=== PATIENT | female | born 1995 | race Hispanic/Latino ===

== ENCOUNTER 2025-04-23 03:34 | Emergency (ER) | payer MEDICAID, MEDICARE ==
[~2025-04-23] VITALS: Ht 157.5 cm; Wt 99.8 kg
--- NOTE | 2025-04-23 03:52 | ERN ---
ED Note History of Present Illness Stated Complaint: ALLERGIC REACTION Chief Complaint: Allergic Reaction Time Seen by MD: 03:44 Dictation: This is a 29-year-old female who presented to the emergency room with complaints of extensive hives and urticaria across her torso chest back and also face. She had similar rash off and on in the past. Never reached her face or neck. No trigger has been found so far. She stated that she also started to feel shortness of breath and a sensation of throat tightening up. She was afraid of tongue and lip swelling and hence called the EMS. She received IM AP 0.5 and Benadryl prior to ER arrival in the rash had significantly improved. She denied any insect bites Did not my evaluation she denied any shortness of breath, tongue swelling or lip swelling. Temperature 97.8 pulse 88 respirations 20 blood pressure 112/73 pulse oximetry of 99% and a BMI of 40 Allergies: Coded Allergies: No Known Drug Allergies (Unverified Allergy, Unknown, 04/23/25) Home Meds Active Scripts Diphenhydramine HCl (Benadryl) 50 Mg Cap, 50 MG PO Q6HPRN for itching rash, #30 CAP 0 Refills Prov:SANTO NUÑEZ MD 04/23/25 Prednisone (Prednisone) 20 Mg Tablet, 1 TAB PO AD for 6 Days, #14 TAB 0 Refills TAKE 1 TAB BY MOUTH THREE TIMES PER DAY X3 DAYS, THEN TAKE 1 TAB BY MOUTH TWICE A DAY X2 DAYS, THEN TAKE 1 TAB BY MOUTH ONCE A DAY X1 DAY. Prov:SANTO NUÑEZ MD 04/23/25 Past Medical History Past Medical History: No Pertinent History Surgical History: Cholecystectomy Family History: Negative Social History: Smokers, Drugs (THC), Negative RN Note Reviewed/Agreed w/PFSH: Yes Review of System Dictation Constitutional: Negative for fever,chills, and weight loss Eyes: Negative for injury, pain,redness, and discharge ENT: Negative for injury,pain or swelling Cardiovascular: Negative for chest pain, palpitations, and edema Respiratory: Positive for shortness of breath, sensation of throat closing up Abdomen/GI: Negative for abdominal pain, nausea, vomiting, diarrhea, and constipation Back: Negative for injury and pain : Negative for injury, bleeding and discharge MS/Extremity: Negative for injury and deformity Skin: Positive for rash, diffuse urticaria all over the body Neuro: Negative for headache, weakness, numbness, tingling, and seizure Psych: Negative for suicide ideation, homicidal ideation, and hallucinations Initial Vital Sign VS Vital Signs Date Time Temp Pulse Resp B/P (MAP) Pulse Ox O2 Delivery O2 Flow Rate FiO2 04/23/25 03:35 97.9 88 20 112/73 99 Room Air 0 04/23/25 03:47 21 Physical Exam Dictation General: awake, alert, NAD morbidly obese lady Head/Face: Normocephalic, atraumatic Eyes: PERRL, EOMI, vision at baseline ENT: oral cavity clear, TMs clear, no signs of infection no stridor Neck: Trachea midline, supple, no nuchal rigidity Cardiovascular: RRR, normal S1/S2, No MRGs, no JVD Respiratory: CTAB, no respiratory distress, No rales or wheezes Abdomen: Soft, non-tender, non-distended, normal bowel sounds, no guarding or rebound. Skin: Warm, dry, normal turgor, no rash MS/Extremity: Pulses equal, no cyanosis, neurovascular intact, FROM Neuro: COAx4, GCS 15, strength 5/5, CN 2-12 intact, normal cerebellar exam, normal gait, Psych: Normal behavior, mood, and affect normal Extremities-trace edema without any palpable cords, Homans sign is negative ED Course ED Course Orders Procedure Category Date Status Time Methylprednisolone PHA 04/23/25 Complete Succ 125mg (Solu-Medr 04:00 Current Medications Medications (Trade) Dose Ordered Sig/Nick Route PRN Reason Start Time Stop Time Status Last Admin Dose Admin Methylprednisolone Sodium Succinate (Solu-medROL 125MG) 60 mg ONCE ONCE IM 04/23/25 04:00 04/23/25 04:16 DC 04/23/25 04:20 Vital Signs Date Time Temp Pulse Resp B/P (MAP) Pulse Ox O2 Delivery O2 Flow Rate FiO2 04/23/25 05:17 97.9 78 18 122/78 99 Room Air* 0 21 04/23/25 03:47 97.9 81 18 129/82 98 Room Air* 0 21 04/23/25 03:35 97.9 88 20 112/73 99 Room Air 0 Medical Decision Making MDM Differential diagnosis: Urticaria, angioedema, impending anaphylaxis, impetigo, contact dermatitis This is a 29-year-old female who presented to the emergency room with complaints of extensive hives and urticaria across her torso chest back and also face. She had similar rash off and on in the past. Never reached her face or neck. No trigger has been found so far. She stated that she also started to feel shor tness of breath and a sensation of throat tightening up. She was afraid of tongue and lip swelling and hence called the EMS. She received IM AP 0.5 and Benadryl prior to ER arrival in the rash had significantly improved. She denied insect bite Did not my evaluation she denied any shortness of breath, tongue swelling or lip swelling. Temperature 97.8 pulse 88 respirations 20 blood pressure 112/73 pulse oximetry of 99% and a BMI of 40 Dose of steroid and monitor her closely for any delayed reactivity. On re-evaluation patient was alert awake ambulating with no problems on room air. I educated her to see her primary care physician and perhaps get an evaluation for food allergies, environmental allergies Previous outside records reviewed: Old ER visits. Risk of complication and/or morbidity or mortality of patient management: None Medications-Per medication reconciliation Need for hospitalization: Patient does not meet criteria for hospitalization. Need for emergency major/minor surgery: No There are no social concerns with this patient. Prescription drug management Prescriptions will include symptomatic care Patient's prior external medical records from other ER visits were reviewed by me as indicated. Prior testing and results from previous visits were reviewed. Prior tests were taken into account with medical decision making and resource utilization, independent historian/historians were used to obtain complete medical history. I independently interpreted the test that were performed, results were reviewed by me and considered findings on radiology if ordered. Medical management and examination interpretation discussions were had by me with other qualified healthcare professionals as indicated for the patient's care. Problem List Problem List: (1) Diffuse urticaria (2) Severe allergic reaction (3) Morbid obesity DX & DISP Disposition: Discharge Departure Impression: Primary Impression: Severe allergic reaction Additional Impressions: Diffuse urticaria, Morbid obesity Condition: Stable Scripts Diphenhydramine HCl (Benadryl) 50 Mg Cap 50 MG PO Q6HPRN for itching rash, #30 CAP 0 Refills Prov: SANTO NUÑEZ MD 04/23/25 Prednisone (Prednisone) 20 Mg Tablet 1 TAB PO AD for 6 Days, #14 TAB 0 Refills TAKE 1 TAB BY MOUTH THREE TIMES PER DAY X3 DAYS, THEN TAKE 1 TAB BY MOUTH TWICE A DAY X2 DAYS, THEN TAKE 1 TAB BY MOUTH ONCE A DAY X1 DAY. Prov: SANTO NUÑEZ MD 04/23/25 Additional Instructions: Patient and the caregiver have been informed of all the diagnostic tests and the imaging conducted during the today's visit to the emergency room and has verbalized understanding of the results I have personally reviewed and interpreted all diagnostic exams performed here in the ER today as well as the vital signs documented by the nursing staff. The patient is now being discharged to home and should follow up with the primary care physician or the specialist as directed by the ER staff. Patient must follow up with her primary care physician to have her allergies evaluated. SANTO NUÑEZ MD Apr 23, 2025 03:52
[2025-04-23] MEDS ORDERED: PRED20TA3 PO (04:33)
[2025-04-23] MEDS ORDERED: DIPH50CA38 PO (04:33)
[2025-04-23 05:17] VITALS: BP 122/78; PULSE 78; RESP 18; TEMP 97.8; O2SAT 99
== END 2025-04-23 05:20 | disposition home or self-care (01) ==
LOC: EDH 03:34
DX: T78.40XA Allergy, unspecified, initial encounter (principal); L50.9 Urticaria, unspecified; E66.01 Morbid (severe) obesity due to excess calories; F17.200 Nicotine dependence, unspecified, uncomplicated; Z68.41 Body mass index [BMI] 40.0-44.9, adult; Z90.49 Acquired absence of other specified parts of digestive tract; X58.XXXA Exposure to other specified factors, initial encounter
CPT/HCPCS: 99283; 96372; J2919